=== PATIENT | male | born 1950 | race Asian ===

== ENCOUNTER 2020-03-27 13:10 | Inpatient (IN) | payer OTHER, SELFPAY ==
[~2020-03-27] VITALS: Ht 167.6 cm; Wt 68.0 kg
[2020-03-27 13:11] VITALS: Ht 167.6 cm; Wt 68.0 kg
[2020-03-27 14:10] LABS: CALCIUM 9.1 mg/dL (8.5-10.1); CARBON DIOXIDE 25.4 mmol/L (21-32); CHLORIDE SERUM 104 mmol/L (98-107); CREATININE SERUM 1.1 mg/dL (0.7-1.3); GLUCOSE SERUM 165 mg/dL (74-106); POTASSIUM SERUM 3.4 mmol/L (3.5-5.1); SODIUM SERUM 137 mmol/L (136-145)
[2020-03-27 14:20] LABS: ALKALINE PHOSPHATASE 201 U/L (46-116); ALT/SGPT 117 U/L (16-63); AST/SGOT 37 U/L (15-37); BILIRUBIN TOTAL 0.94 mg/dL (0.20-1.00); LACTIC DEHYDROGENASE (LDH) 214 U/L (100-190); TOTAL PROTEIN, SERUM 7.7 g/dL (6.4-8.2)
[2020-03-27 14:38] LABS: C REACTIVE PROTEIN 27.7 mg/dL (<=0.9)
[2020-03-27 15:07] LABS: BASOPHIL % 0.1 % (0.2-1.5); PLATELET COUNT 182 x10^3mcL (152-348)
[2020-03-27 15:26] LABS: rbc morphology (normal/abnorm) NORMAL (NORMAL)
[2020-03-27 16:51] LABS: MAGNESIUM 2.5 mg/dL (1.8-2.4); PHOSPHOROUS 1.7 mg/dL (2.5-4.9)
[2020-03-27] MEDS ORDERED: AMLODIPINE BESYL5 M2 PO (16:58)
[2020-03-27 16:59] LABS: T3 TOTAL 0.76 ng/mL
[2020-03-27] MEDS ORDERED: METOPROLOL SUCC25 M2 PO (16:59)
[2020-03-27 17:01] LABS: FREE T4 1.49 ng/dL (0.76-1.46); FREE THYROXINE INDEX 3.4 ug/dL (1.4-4.5); T4(THYROXINE) 9.4 ug/dL (4.7-13.3)
[2020-03-28 00:19] LABS: UA SPECIFIC GRAVITY 1.025 (1.005-1.035); microscopic required? YES; urine erythrocyte NEGATIVE (NEGATIVE)
[2020-03-28 08:25] LABS: BASOPHIL % 0.1 % (0.2-1.5); PLATELET COUNT 169 x10^3mcL (152-348)
[2020-03-28 08:54] LABS: RED CELL DISTRIBUTION WIDTH 14.8 % (12.1-16.2)
[2020-03-28 09:00] LABS: CALCIUM 9.2 mg/dL (8.5-10.1); CARBON DIOXIDE 27.2 mmol/L (21-32); CHLORIDE SERUM 106 mmol/L (98-107); CREATININE SERUM 0.9 mg/dL (0.7-1.3); GLUCOSE SERUM 143 mg/dL (74-106); MAGNESIUM 2.2 mg/dL (1.8-2.4); PHOSPHOROUS 2.8 mg/dL (2.5-4.9); POTASSIUM SERUM 4.1 mmol/L (3.5-5.1); SODIUM SERUM 140 mmol/L (136-145)
[2020-03-28 09:14] LABS: rbc morphology (normal/abnorm) NORMAL (NORMAL)
[2020-03-28 18:57] VITALS: BP 136/63
[2020-03-28 20:36] VITALS: BP 126/69
[2020-03-29] VITALS: BP 163/79
[2020-03-29 05:14] VITALS: BP 127/63
[2020-03-29 08:17] LABS: BASOPHIL % 0.3 % (0.2-1.5); PLATELET COUNT 172 x10^3mcL (152-348)
[2020-03-29 08:22] LABS: RED CELL DISTRIBUTION WIDTH 14.8 % (12.1-16.2)
[2020-03-29 08:23] LABS: rbc morphology (normal/abnorm) NORMAL (NORMAL)
[2020-03-29 08:48] LABS: C REACTIVE PROTEIN 10.9 mg/dL (<=0.9); CALCIUM 8.5 mg/dL (8.5-10.1); CARBON DIOXIDE 24.3 mmol/L (21-32); CHLORIDE SERUM 106 mmol/L (98-107); CREATININE SERUM 0.8 mg/dL (0.7-1.3); GLUCOSE SERUM 140 mg/dL (74-106); LACTIC DEHYDROGENASE (LDH) 201 U/L (100-190); MAGNESIUM 2.2 mg/dL (1.8-2.4); PHOSPHOROUS 3.7 mg/dL (2.5-4.9); SODIUM SERUM 139 mmol/L (136-145)
[2020-03-29 09:25] VITALS: BP 114/64
[2020-03-29 12:43] VITALS: BP 112/61
[2020-03-29 17:00] VITALS: BP 124/58
[2020-03-29 20:53] VITALS: BP 123/58
[2020-03-30 05:32] VITALS: BP 120/67
[2020-03-30 08:03] VITALS: BP 120/59
[2020-03-30 08:39] LABS: CALCIUM 8.6 mg/dL (8.5-10.1); CARBON DIOXIDE 27.3 mmol/L (21-32); CHLORIDE SERUM 105 mmol/L (98-107); CREATININE SERUM 0.8 mg/dL (0.7-1.3); GLUCOSE SERUM 118 mg/dL (74-106); POTASSIUM SERUM 4.3 mmol/L (3.5-5.1); SODIUM SERUM 139 mmol/L (136-145)
[2020-03-30 09:12] LABS: BASOPHIL % 0.1 % (0.2-1.5); PLATELET COUNT 170 x10^3mcL (152-348)
[2020-03-30 09:36] LABS: RED CELL DISTRIBUTION WIDTH 14.7 % (12.1-16.2)
[2020-03-30 09:37] LABS: rbc morphology (normal/abnorm) NORMAL (NORMAL)
[2020-03-30 11:48] VITALS: BP 98/53
[2020-03-30 16:39] VITALS: BP 105/49
[2020-03-30 20:36] VITALS: BP 125/66
[2020-03-31 05:40] VITALS: BP 114/65
[2020-03-31 09:14] VITALS: BP 114/60
[2020-03-31 10:58] LABS: BASOPHIL % 0.1 % (0.2-1.5); PLATELET COUNT 177 x10^3mcL (152-348)
[2020-03-31 11:35] LABS: CALCIUM 8.5 mg/dL (8.5-10.1); CARBON DIOXIDE 26.1 mmol/L (21-32); CHLORIDE SERUM 105 mmol/L (98-107); CREATININE SERUM 0.8 mg/dL (0.7-1.3); GLUCOSE SERUM 160 mg/dL (74-106); POTASSIUM SERUM 4.4 mmol/L (3.5-5.1); SODIUM SERUM 138 mmol/L (136-145)
[2020-03-31 12:49] VITALS: BP 106/51
[2020-03-31 15:58] VITALS: BP 121/66
[2020-03-31 21:46] VITALS: BP 128/65
[2020-04-01 05:56] VITALS: BP 132/74
[2020-04-01 07:35] VITALS: BP 124/64
[2020-04-01 09:32] LABS: BASOPHIL % 0.2 % (0.2-1.5); PLATELET COUNT 156 x10^3mcL (152-348)
[2020-04-01 10:18] LABS: RED CELL DISTRIBUTION WIDTH 14.6 % (12.1-16.2)
[2020-04-01 10:19] LABS: rbc morphology (normal/abnorm) NORMAL (NORMAL)
[2020-04-01 10:31] LABS: C REACTIVE PROTEIN 1.1 mg/dL (<=0.9); CALCIUM 8.6 mg/dL (8.5-10.1); CARBON DIOXIDE 26.2 mmol/L (21-32); CHLORIDE SERUM 106 mmol/L (98-107); CREATININE SERUM 0.8 mg/dL (0.7-1.3); GLUCOSE SERUM 116 mg/dL (74-106); POTASSIUM SERUM 4.5 mmol/L (3.5-5.1); SODIUM SERUM 138 mmol/L (136-145)
[2020-04-01 12:19] VITALS: BP 125/65
[2020-04-01 15:59] VITALS: BP 114/56
[2020-04-01 20:11] VITALS: BP 112/64
[2020-04-02 05:20] VITALS: BP 123/61
[2020-04-02 07:33] LABS: BASOPHIL % 0.1 % (0.2-1.5); PLATELET COUNT 162 x10^3mcL (152-348); RED CELL DISTRIBUTION WIDTH 14.3 % (12.1-16.2)
[2020-04-02 08:31] VITALS: BP 108/65
[2020-04-02 08:41] LABS: C REACTIVE PROTEIN 0.5 mg/dL (<=0.9); CALCIUM 8.1 mg/dL (8.5-10.1); CHLORIDE SERUM 107 mmol/L (98-107); CREATININE SERUM 0.8 mg/dL (0.7-1.3); GLUCOSE SERUM 108 mg/dL (74-106); POTASSIUM SERUM 4.4 mmol/L (3.5-5.1); SODIUM SERUM 138 mmol/L (136-145)
[2020-04-02 12:02] VITALS: BP 117/67
[2020-04-02 17:10] VITALS: BP 119/67
[2020-04-02 21:16] VITALS: BP 128/69
[2020-04-02 22:44] LABS: rbc morphology (normal/abnorm) NORMAL (NORMAL)
[2020-04-03 04:44] VITALS: BP 121/66
[2020-04-03 06:48] LABS: BASOPHIL % 0.1 % (0.2-1.5); C REACTIVE PROTEIN 0.4 mg/dL (<=0.9); CARBON DIOXIDE 26.5 mmol/L (21-32); CHLORIDE SERUM 106 mmol/L (98-107); CREATININE SERUM 0.7 mg/dL (0.7-1.3); GLUCOSE SERUM 111 mg/dL (74-106); PLATELET COUNT 158 x10^3mcL (152-348); RED CELL DISTRIBUTION WIDTH 14.2 % (12.1-16.2); SODIUM SERUM 139 mmol/L (136-145)
[2020-04-03 07:32] LABS: rbc morphology (normal/abnorm) NORMAL (NORMAL)
[2020-04-03 08:50] VITALS: BP 110/65
[2020-04-03] MEDS ORDERED: VENTOLIN H0.09 MG/A1 IH (11:07)
[2020-04-03] MEDS ORDERED: DECADRON4 MG PO (11:07)
[2020-04-03 11:51] VITALS: BP 120/63
[2020-04-03 16:29] VITALS: BP 113/64
[2020-04-03 20:59] VITALS: BP 109/55
[2020-04-04 05:44] VITALS: BP 110/60
[2020-04-04 08:48] VITALS: BP 120/64
[2020-04-04 12:07] VITALS: BP 98/63
== END 2020-04-04 14:35 | disposition home or self-care (01) | DRG 177 ==
LOC: ED 13:10 → DU 16:05
PROVIDERS: Emergency Medicine; ADMIT Internal Medicine; ATTEND Internal Medicine
PROC: XW033E5 Introduction of Remdesivir Anti-infective into Peripheral Vein, Percutaneous Approach, New Technology Group 5 (ICD-10-PCS; principal; 2020-03-29)
PROC: XW13325 Transfusion of Convalescent Plasma (Nonautologous) into Peripheral Vein, Percutaneous Approach, New Technology Group 5 (ICD-10-PCS; 2020-03-29)
DX: U07.1 COVID-19 (principal); J12.89 Other viral pneumonia; J96.01 Acute respiratory failure with hypoxia; R65.10 Systemic inflammatory response syndrome (SIRS) of non-infectious origin without acute organ dysfunction; E87.6 Hypokalemia; I10 Essential (primary) hypertension; R73.9 Hyperglycemia, unspecified; Z90.49 Acquired absence of other specified parts of digestive tract; Z79.899 Other long term (current) drug therapy
CPT/HCPCS: 36600; 83880; 84439; 85378; 87804; G0378; J0456; J0696; J1100; J1650; J7040; J7050; J7060; Q0163; U0003